=== PATIENT | female | born 1995 | race Caucasian/White ===

== ENCOUNTER 2019-04-27 20:00 | Emergency (ER) | payer BC ==
[~2019-04-27] VITALS: Ht 154.9 cm; Wt 100.0 kg
[2019-04-27 20:07] VITALS: Ht 154.9 cm; Wt 100.0 kg
[2019-04-27] MEDS ORDERED: GLUCOPHAGE1000 MG PO (20:08)
[2019-04-27] MEDS ORDERED: CLEOCIN HCL300 MG PO (20:36)
[2019-04-27 21:30] VITALS: BP 116/59
== END 2019-04-27 21:30 | disposition home or self-care (01) ==
LOC: D.ER 20:00
DX: L03.311 Cellulitis of abdominal wall (principal)